=== PATIENT | male | born 1950 | race Caucasian/White ===

== ENCOUNTER → 2018-05-14 | Outpatient (CLI) | payer OTHER ==
[~2018-05-14] MED LIST: CELEBREX PO; NASONEX17 GM NASAL; NORCO 5-325 TA1 EACH PO; NORVASC5 MG PO; OMEPRAZOLE PO
== END ==
LOC: CAT 09:43
DX: Z13.6 Encounter for screening for cardiovascular disorders (principal); E78.00 Pure hypercholesterolemia, unspecified; Z82.49 Family history of ischemic heart disease and other diseases of the circulatory system